=== PATIENT | male | born 1980 | race Two or more races ===

== ENCOUNTER 2017-05-09 23:30 | Emergency (ER) | payer MEDICAID ==
[~2017-05-09] VITALS: Ht 167.6 cm; Wt 86.2 kg
[2017-05-10 00:34] LABS: Basophils # (auto) 0.1 uL; Basophils % (auto) 0.5 % (0.0-2.0); Eosinophils # (auto) 0.2 uL; Eosinophils % (auto) 2.4 % (0.0-7.0); Hematocrit 46.8 % (41.0-53.0); Hemoglobin 16.1 g/dL (13.5-17.5); Lymphocytes % (auto) 30.1 % (10.0-50.0); Mean Corpuscular Hgb Conc. 34.4 g/dL (32.0-36.0); Mean Corpuscular Volume 87.2 fL (80.0-100.0); Monocytes # (auto) 0.6 uL; Monocytes % (auto) 6.5 % (0.0-12.0); Neutrophils % (auto) 60.5 % (37.0-80.0); Nucleated Red Blood Cells % 0.1 %; Platelet Count (auto) 129 10^3/uL (140-450); Red Blood Cells 5.36 10^6/uL (4.5-5.90); Red Cell Distribution Width 12.8 % (11.8-14.3); White Blood Cell 9.9 10^3/uL (4.4-10.8)
[2017-05-10 00:38] LABS: Partial Thromboplastin Time 26.8 sec (22.64-33.71); Prothrombin Time 10.9 sec (9.37-12.3)
[2017-05-10 00:42] LABS: Alanine Aminotransferase 43 U/L (16-61); Albumin 3.8 g/dL (3.4-5.0); Anion Gap 6 (5-15); Aspartate Aminotransferase 51 U/L (15-37); BUN/Creatinine Ratio 10.8; Blood Urea Nitrogen 8 mg/dL (7-18); Calcium 8.9 mg/dL (8.5-10.1); Carbon Dioxide 25 mmol/L (21-32); Chloride 111 mmol/L (98-107); GFR African American 152 mL/min; GFR Non-African American 126 mL/min; Glucose 120 mg/dL (74-106); Potassium 3.5 mmol/L (3.5-5.1); Sodium 142 mmol/L (136-145)
[2017-05-10 00:47] LABS: Alkaline Phosphatase 92 U/L (45-117); Bilirubin, Total 0.4 mg/dL (0.2-1.0); Total Protein 7.3 g/dL (6.4-8.2)
[2017-05-10 09:46] VITALS: BP 148/94
== END 2017-05-10 10:17 | disposition home or self-care (01) ==
LOC: ER 23:32
DX: R07.89 Other chest pain (principal); D69.6 Thrombocytopenia, unspecified; I10 Essential (primary) hypertension; R73.9 Hyperglycemia, unspecified
CPT/HCPCS: 36415; 71045; 80053; 84443; 84484; 85025; 85610; 85730; 93005

== ENCOUNTER 2017-08-01 20:55 | Emergency (ER) | payer MEDICAID ==
[~2017-08-01] VITALS: Ht 165.1 cm; Wt 86.2 kg
[2017-08-01 21:57] LABS: Basophils # (auto) 0 uL; Basophils % (auto) 0.4 % (0.0-2.0); Eosinophils # (auto) 0.2 uL; Eosinophils % (auto) 2.5 % (0.0-7.0); Hematocrit 45.1 % (41.0-53.0); Lymphocytes # (auto) 2.6 uL; Lymphocytes % (auto) 26.7 % (10.0-50.0); Mean Corpuscular Hemoglobin 30.3 pg (28.0-32.0); Mean Corpuscular Hgb Conc. 35.7 g/dL (32.0-36.0); Mean Corpuscular Volume 84.9 fL (80.0-100.0); Monocytes # (auto) 0.7 uL; Monocytes % (auto) 7.1 % (0.0-12.0); Neutrophils # (auto) 6.2 uL; Neutrophils % (auto) 63.3 % (37.0-80.0); Nucleated Red Blood Cells % 0.2 %; Platelet Count (auto) 128 10^3/uL (140-450); Red Blood Cells 5.31 10^6/uL (4.5-5.90); Red Cell Distribution Width 12.5 % (11.8-14.3); White Blood Cell 9.8 10^3/uL (4.4-10.8)
[2017-08-01 22:03] LABS: Alanine Aminotransferase 41 U/L (16-61); Alkaline Phosphatase 84 U/L (45-117); Anion Gap 8 (5-15); Aspartate Aminotransferase 30 U/L (15-37); BUN/Creatinine Ratio 9.4; Bilirubin, Total 0.6 mg/dL (0.2-1.0); Blood Urea Nitrogen 9 mg/dL (7-18); Calcium 8.5 mg/dL (8.5-10.1); Carbon Dioxide 27 mmol/L (21-32); Chloride 106 mmol/L (98-107); GFR African American 113 mL/min; GFR Non-African American 93 mL/min; Glucose 106 mg/dL (74-106); Magnesium 2.3 mg/dL (1.6-2.6); Potassium 3.7 mmol/L (3.5-5.1); Sodium 141 mmol/L (136-145); Total Protein 7.8 g/dL (6.4-8.2)
[2017-08-02 04:00] VITALS: BP 135/80
== END 2017-08-02 04:35 | disposition home or self-care (01) ==
LOC: ER 20:55
DX: R07.89 Other chest pain (principal); I10 Essential (primary) hypertension; R06.02 Shortness of breath
CPT/HCPCS: 36415; 71045; 80053; 83735; 83880; 84484; 85025; 85379; 93005

== ENCOUNTER 2017-10-06 21:40 | Emergency (ER) | payer MEDICAID ==
[~2017-10-06] VITALS: Ht 162.6 cm; Wt 88.5 kg
[2017-10-06 22:07] VITALS: BP 102/84
[2017-10-07] MEDS ORDERED: TETRACAINE HCL 0.5% OPTH(EYE) SOLN 4ML EACHEYE ONE (00:30)
[2017-10-07] MEDS ORDERED: FLUORESCEIN SOD 1 MG TEST STRIP ONE (00:40)
[2017-10-07] MEDS ORDERED: FLUORESCEIN SOD 1 MG TEST STRIP LEFTEYE ONE (01:00)
[2017-10-07] MEDS ORDERED: GENTAMICIN OPTH sol 0.3% 5ml EACHEYE ONE (01:00)
== END 2017-10-07 00:54 | disposition home or self-care (01) ==
LOC: ER 21:40
DX: H16.002 Unspecified corneal ulcer, left eye (principal); I10 Essential (primary) hypertension

== ENCOUNTER 2018-06-18 13:02 | Emergency (ER) | payer MEDICAID ==
[~2018-06-18] VITALS: Ht 165.1 cm; Wt 86.2 kg
[2018-06-18 14:33] LABS: Basophils # (auto) 0 uL; Basophils % (auto) 0.4 % (0.0-2.0); Eosinophils # (auto) 0.2 uL; Eosinophils % (auto) 1.4 % (0.0-7.0); Hemoglobin 18.2 g/dL (13.5-17.5); Lymphocytes # (auto) 2.3 uL; Lymphocytes % (auto) 20.9 % (10.0-50.0); Mean Corpuscular Hemoglobin 29.4 pg (28.0-32.0); Mean Corpuscular Volume 83.9 fL (80.0-100.0); Monocytes # (auto) 0.7 uL; Monocytes % (auto) 6.7 % (0.0-12.0); Neutrophils # (auto) 7.9 uL; Neutrophils % (auto) 70.6 % (37.0-80.0); Nucleated Red Blood Cells % 0.3 %; Platelet Count (auto) 116 10^3/uL (140-450); Red Cell Distribution Width 13.7 % (11.8-14.3); White Blood Cell 11.2 10^3/uL (4.4-10.8)
[2018-06-18 14:36] LABS: Albumin 4.2 g/dL (3.4-5.0); Anion Gap 8 (5-15); Blood Urea Nitrogen 13 mg/dL (7-18); Carbon Dioxide 24 mmol/L (21-32); Chloride 100 mmol/L (98-107); Glucose 322 mg/dL (74-106); Potassium 3.9 mmol/L (3.5-5.1); Sodium 132 mmol/L (136-145)
[2018-06-18 14:38] LABS: Alanine Aminotransferase 58 U/L (16-61); Aspartate Aminotransferase 35 U/L (15-37); GFR African American 116 mL/min; GFR Non-African American 96 mL/min
[2018-06-18 14:48] LABS: Alkaline Phosphatase 150 U/L (45-117); Bilirubin, Total 0.6 mg/dL (0.2-1.0); Total Protein 8.3 g/dL (6.4-8.2)
[2018-06-18] MEDS ORDERED: SODIUM CHLORIDE 0.9% 1,000 ML IV ONE (15:33)
[2018-06-18] MEDS ORDERED: InsuLIN REG 1unit/0.01ml Soln (100units/ml) IV ONE (15:45)
[2018-06-18 15:46] VITALS: BP 145/100
== END 2018-06-18 17:28 | disposition home or self-care (01) ==
LOC: ER 13:08
DX: R73.9 Hyperglycemia, unspecified (principal); R07.89 Other chest pain
CPT/HCPCS: 36415; 71046; 80053; 82010; 82962; 83036; 84484; 85025; 93005; 94761; 96374; 99284; J1815; J7030

== ENCOUNTER 2018-08-10 17:24 | Emergency (ER) | payer MEDICAID, OTHER ==
[~2018-08-10] VITALS: Ht 167.6 cm; Wt 81.6 kg
[2018-08-10] MEDS ORDERED: cefTRIAXone SOD 1,000 MG VL IM ONE (18:45)
[2018-08-10] MEDS ORDERED: TETANUS-DIPTH-ACEL PERTUSSIS 0.5ML SYRG IM ONE (18:45)
[2018-08-10 18:53] VITALS: BP 124/77
== END 2018-08-10 19:12 | disposition home or self-care (01) ==
LOC: ER 17:36
DX: S61.213A Laceration without foreign body of left middle finger without damage to nail, initial encounter (principal); W26.8XXA Contact with other sharp object(s), not elsewhere classified, initial encounter; Y93.89 Activity, other specified; Y99.8 Other external cause status; Y92.096 Garden or yard of other non-institutional residence as the place of occurrence of the external cause
CPT/HCPCS: 12001; 90471; 90715; 96372; 99283; J0696

== ENCOUNTER 2020-04-21 05:44 | Emergency (ER) | payer MEDICAID ==
[~2020-04-21] VITALS: Ht 167.6 cm; Wt 81.6 kg
[2020-04-21 06:36] LABS: Albumin 3.6 g/dL (3.4-5.0); Anion Gap 10 (5-15); Blood Urea Nitrogen 6 mg/dL (7-18); Calcium 8.9 mg/dL (8.5-10.1); Carbon Dioxide 23 mmol/L (21-32); Chloride 99 mmol/L (98-107); Glucose 345 mg/dL (74-106); Potassium 3.7 mmol/L (3.5-5.1); Sodium 132 mmol/L (136-145)
[2020-04-21 06:45] LABS: Alanine Aminotransferase 45 U/L (16-61); Alkaline Phosphatase 104 U/L (45-117); Aspartate Aminotransferase 22 U/L (15-37); BUN/Creatinine Ratio 9.2; Bilirubin, Total 0.7 mg/dL (0.2-1.0); GFR African American 174 mL/min; GFR Non-African American 144 mL/min; Total Protein 7.3 g/dL (6.4-8.2)
[2020-04-21 06:52] LABS: Basophils # (auto) 0 10 ^3/uL (0-0.2); Eosinophils # (auto) 0.2 10 ^3/uL (0-0.8); Lymphocytes # (auto) 1.3 10 ^3/uL (0.4-5.4); Monocytes # (auto) 0.7 10 ^3/uL (0-1.3); Neutrophils % (auto) 76.6 % (37.0-80.0); Nucleated Red Blood Cells % 0.1 %; Platelet Count (auto) 144 10^3/uL (140-450); Red Cell Distribution Width 12.7 % (11.8-14.3)
[2020-04-21 06:55] LABS: Basophils % (auto) 0.4 % (0.0-2.0); Eosinophils % (auto) 2.1 % (0.0-7.0); Hemoglobin 17.5 g/dL (13.5-17.5); Lymphocytes % (auto) 13.8 % (10.0-50.0); Mean Corpuscular Hemoglobin 31.5 pg (28.0-32.0); Mean Corpuscular Hgb Conc. 35.7 g/dL (32.0-36.0); Mean Corpuscular Volume 88.1 fL (80.0-100.0); Monocytes % (auto) 7.1 % (0.0-12.0); Neutrophils # (auto) 7.4 10 ^3/uL (1.6-8.6); Red Blood Cells 5.56 10^6/uL (4.5-5.90); White Blood Cell 9.7 10^3/uL (4.4-10.8)
[2020-04-21] MEDS ORDERED: cloNIDine HCL 0.1 MG TAB PO ONE (07:00)
[2020-04-21] MEDS ORDERED: LORazepam 2MG/ML-1ML VIAL IV ONE (07:00)
[2020-04-21] MEDS ORDERED: ASPirin 81 mg TAB PO ONE (07:00)
[2020-04-21 09:15] VITALS: BP 133/93
== END 2020-04-21 09:36 | disposition home or self-care (01) ==
LOC: ER 05:44
DX: I10 Essential (primary) hypertension (principal); R07.89 Other chest pain
CPT/HCPCS: 36415; 71045; 80053; 83880; 84484; 85025; 93005; 96374; 99285; J2060

== ENCOUNTER 2020-07-02 16:27 | Emergency (ER) | payer SELFPAY ==
[~2020-07-02] VITALS: Ht 167.6 cm; Wt 86.2 kg
[2020-07-02 17:08] VITALS: BP 137/80
== END 2020-07-02 18:02 | disposition home or self-care (01) ==
LOC: ER 16:27
DX: R51.9 Headache, unspecified (principal); E11.9 Type 2 diabetes mellitus without complications; I10 Essential (primary) hypertension
CPT/HCPCS: 70450

== ENCOUNTER 2021-02-13 20:09 | Emergency (ER) | payer SELFPAY ==
[~2021-02-13] VITALS: Ht 167.6 cm; Wt 86.2 kg
[2021-02-13 20:19] VITALS: BP 198/117
== END 2021-02-14 00:45 | disposition left against medical advice (07) ==
LOC: ER 20:11
DX: I10 Essential (primary) hypertension (principal); Z53.21 Procedure and treatment not carried out due to patient leaving prior to being seen by health care provider
CPT/HCPCS: 71045; 93005

== ENCOUNTER 2021-07-27 15:56 | Emergency (ER) | payer MEDICAID ==
[~2021-07-27] VITALS: Ht 167.6 cm; Wt 86.2 kg
[2021-07-27] MEDS ORDERED: ASPirin 81 mg TAB PO ONE (17:00)
[2021-07-27] MEDS ORDERED: LORazepam 2MG/ML-1ML VIAL IV ONE (17:00)
[2021-07-27] MEDS ORDERED: SODIUM CHLORIDE 0.9% 1,000 ML IVB ONE (17:00)
[2021-07-27 17:57] LABS: Basophils # (auto) 0.2 10 ^3/uL (0-0.2); Basophils % (auto) 2.5 % (0.0-2.0); Eosinophils # (auto) 0.2 10 ^3/uL (0-0.8); Hematocrit 43.9 % (41.0-53.0); Hemoglobin 15.3 g/dL (13.5-17.5); Lymphocytes # (auto) 1.3 10 ^3/uL (0.4-5.4); Lymphocytes % (auto) 14.8 % (10.0-50.0); Mean Corpuscular Hemoglobin 28.2 pg (28.0-32.0); Mean Corpuscular Hgb Conc. 34.9 g/dL (32.0-36.0); Mean Corpuscular Volume 80.7 fL (80.0-100.0); Monocytes # (auto) 0.5 10 ^3/uL (0-1.3); Monocytes % (auto) 5.2 % (0.0-12.0); Neutrophils # (auto) 6.8 10 ^3/uL (1.6-8.6); Neutrophils % (auto) 75.5 % (37.0-80.0); Nucleated Red Blood Cells % 0.1 %; Red Blood Cells 5.44 10^6/uL (4.5-5.90); Red Cell Distribution Width 14.1 % (11.8-14.3); White Blood Cell 8.9 10^3/uL (4.4-10.8)
[2021-07-27 18:16] LABS: Albumin 4.1 g/dL (3.4-5.0); BUN/Creatinine Ratio 9.8; Calcium 9.2 mg/dL (8.5-10.1)
[2021-07-27 18:30] LABS: Bilirubin, Total 0.5 mg/dL (0.2-1.0); Total Protein 7.7 g/dL (6.4-8.2)
[2021-07-28 00:13] VITALS: BP 146/86
== END 2021-07-28 00:16 | disposition home or self-care (01) ==
LOC: ER 15:56
DX: I10 Essential (primary) hypertension (principal); R07.89 Other chest pain; F41.9 Anxiety disorder, unspecified; E86.0 Dehydration; E11.9 Type 2 diabetes mellitus without complications; F17.210 Nicotine dependence, cigarettes, uncomplicated
CPT/HCPCS: 36415; 70450; 71045; 80053; 84443; 84484; 85025; 93005

== ENCOUNTER 2022-03-15 19:10 | Emergency (ER) | payer MEDICAID ==
[~2022-03-15] VITALS: Ht 165.1 cm; Wt 89.5 kg
[2022-03-15 21:26] LABS: Basophils # (auto) 0 10 ^3/uL (0-0.2); Basophils % (auto) 0.5 % (0.0-2.0); Eosinophils # (auto) 0.2 10 ^3/uL (0-0.8); Eosinophils % (auto) 2.6 % (0.0-7.0); Hemoglobin 15.6 g/dL (13.5-17.5); Lymphocytes % (auto) 24.8 % (10.0-50.0); Mean Corpuscular Hemoglobin 28.3 pg (28.0-32.0); Mean Corpuscular Hgb Conc. 34.7 g/dL (32.0-36.0); Mean Corpuscular Volume 81.5 fL (80.0-100.0); Monocytes # (auto) 0.7 10 ^3/uL (0-1.3); Neutrophils # (auto) 5.2 10 ^3/uL (1.6-8.6); Neutrophils % (auto) 64.1 % (37.0-80.0); Nucleated Red Blood Cells % 1.7 %; Red Blood Cells 5.52 10^6/uL (4.5-5.90); Red Cell Distribution Width 14.1 % (11.8-14.3); White Blood Cell 8.2 10^3/uL (4.4-10.8)
[2022-03-15 21:45] LABS: Albumin 3.9 g/dL (3.4-5.0); BUN/Creatinine Ratio 12.3; Calcium 9.4 mg/dL (8.5-10.1); Potassium 3.8 mmol/L (3.5-5.1)
[2022-03-15 21:48] LABS: Bilirubin, Total 0.4 mg/dL (0.2-1.0); Total Protein 7.8 g/dL (6.4-8.2)
[2022-03-16 05:10] VITALS: BP 167/101
== END 2022-03-16 05:11 | disposition home or self-care (01) ==
LOC: ER 19:14
DX: I10 Essential (primary) hypertension (principal); R51.9 Headache, unspecified; F17.210 Nicotine dependence, cigarettes, uncomplicated; E11.9 Type 2 diabetes mellitus without complications; R42 Dizziness and giddiness
CPT/HCPCS: 36415; 70450; 71045; 80053; 84484; 85025; 93005

== ENCOUNTER 2023-06-05 09:37 | Emergency (ER) | payer MEDICAID ==
[~2023-06-05] VITALS: Ht 167.6 cm; Wt 1.7 kg
[2023-06-05] MEDS ORDERED: ACET500T58 PO (12:31)
[2023-06-05 12:38] VITALS: BP 135/70; PULSE 66; RESP 18; TEMP 98.6; O2SAT 98
== END 2023-06-05 12:46 | disposition home or self-care (01) ==
LOC: ER 09:37
DX: R09.A2 Foreign body sensation, throat (principal); M54.2 Cervicalgia; E11.9 Type 2 diabetes mellitus without complications; I10 Essential (primary) hypertension; F17.210 Nicotine dependence, cigarettes, uncomplicated
CPT/HCPCS: 70360

== ENCOUNTER 2023-10-17 15:05 | Emergency (ER) | payer MEDICAID ==
[~2023-10-17] VITALS: Ht 165.1 cm; Wt 85.0 kg
[~2023-10-17 15:05] MED LIST: ACET500T58 PO
[2023-10-17 15:54] LABS: Basophils # (auto) 0 10 ^3/uL (0-0.2); Basophils % (auto) 0.4 % (0.0-2.0); Eosinophils # (auto) 0.2 10 ^3/uL (0-0.8); Eosinophils % (auto) 2.7 % (0.0-7.0); Hematocrit 45.1 % (41.0-53.0); Hemoglobin 16.2 g/dL (13.5-17.5); Lymphocytes # (auto) 1.7 10 ^3/uL (0.4-5.4); Lymphocytes % (auto) 22.4 % (10.0-50.0); Mean Corpuscular Hemoglobin 30.2 pg (28.0-32.0); Mean Corpuscular Hgb Conc. 35.9 g/dL (32.0-36.0); Mean Corpuscular Volume 84.1 fL (80.0-100.0); Monocytes # (auto) 0.5 10 ^3/uL (0-1.3); Monocytes % (auto) 7.3 % (0.0-12.0); Neutrophils % (auto) 67.2 % (37.0-80.0); Nucleated Red Blood Cells % 0.1 %; Platelet Count (auto) 154 10^3/uL (140-450); Red Blood Cells 5.36 10^6/uL (4.5-5.90); Red Cell Distribution Width 13.1 % (11.8-14.3); White Blood Cell 7.4 10^3/uL (4.4-10.8)
[2023-10-17 16:14] LABS: Alanine Aminotransferase 46 U/L (7-40); Albumin 4.8 g/dL (3.2-4.8); Alkaline Phosphatase 146 U/L (46-116); Anion Gap 11 (5-15); Aspartate Aminotransferase 31 U/L (13-40); BUN/Creatinine Ratio 8.6 (10.0-20.0); Blood Urea Nitrogen 10 mg/dL (9-23); Calcium 9.5 mg/dL (8.7-10.4); Carbon Dioxide 21 mmol/L (20-30); Chloride 106 mmol/L (98-107); Glucose 208 mg/dL (74-106); Potassium 3.5 mmol/L (3.5-5.1); Sodium 138 mmol/L (136-145)
[2023-10-17 16:15] LABS: Bilirubin, Total 0.8 mg/dL (0.2-1.0); Total Protein 7.5 g/dL (5.7-8.2)
[2023-10-17] MEDS ORDERED: AZITTAB PO (18:56)
[2023-10-17] MEDS ORDERED: ALBU108A5 IN (18:56)
[2023-10-17] MEDS ORDERED: MONT10TA23 PO (18:56)
[2023-10-17 21:25] VITALS: BP 143/81; PULSE 62; RESP 12; TEMP 98; O2SAT 94
== END 2023-10-17 21:30 | disposition home or self-care (01) ==
LOC: ER 15:05
DX: J06.9 Acute upper respiratory infection, unspecified (principal); M54.9 Dorsalgia, unspecified; I10 Essential (primary) hypertension; E11.9 Type 2 diabetes mellitus without complications; F17.210 Nicotine dependence, cigarettes, uncomplicated
CPT/HCPCS: 36415; 71045; 80053; 84484; 85025; 93005

== ENCOUNTER 2023-12-15 18:26 | Emergency (ER) | payer MEDICAID ==
[~2023-12-15] VITALS: Ht 167.6 cm; Wt 82.5 kg
[~2023-12-15 18:26] MED LIST changes: +ALBU108A5 IN; +AZITTAB PO; +MONT10TA23 PO
[2023-12-15 19:26] LABS: Urine Bacteria None Seen /hpf (None Seen)
[2023-12-15 19:38] LABS: Basophils # (auto) 0 10 ^3/uL (0-0.2); Basophils % (auto) 0.4 % (0.0-2.0); Eosinophils # (auto) 0.3 10 ^3/uL (0-0.8); Eosinophils % (auto) 3.4 % (0.0-7.0); Hematocrit 47.8 % (41.0-53.0); Hemoglobin 17.2 g/dL (13.5-17.5); Lymphocytes # (auto) 1.4 10 ^3/uL (0.4-5.4); Mean Corpuscular Hemoglobin 30.9 pg (28.0-32.0); Mean Corpuscular Volume 85.7 fL (80.0-100.0); Monocytes # (auto) 0.6 10 ^3/uL (0-1.3); Monocytes % (auto) 7.7 % (0.0-12.0); Neutrophils # (auto) 5.4 10 ^3/uL (1.6-8.6); Neutrophils % (auto) 70.5 % (37.0-80.0); Nucleated Red Blood Cells % 0.4 %; Platelet Count (auto) 136 10^3/uL (140-450); Red Blood Cells 5.57 10^6/uL (4.5-5.90); Red Cell Distribution Width 13.5 % (11.8-14.3); White Blood Cell 7.7 10^3/uL (4.4-10.8)
[2023-12-15 19:43] LABS: Urine Blood Negative /uL (Negative); Urine Clarity Clear (Clear); Urine Color Colorless (Yellow); Urine Protein, UAD Negative (Negative); Urine Specific Gravity 1.002 (1.001-1.035); Urine Urobilinogen Normal (Negative); Urine WBC <1 /hpf (0 - 3); Urine pH 5.5 (5.0-9.0)
[2023-12-15 19:45] LABS: Chloride 105 mmol/L (98-107); Potassium 3.7 mmol/L (3.5-5.1); Sodium 136 mmol/L (136-145)
[2023-12-15 19:46] LABS: Anion Gap 4 (5-15); Carbon Dioxide 27 mmol/L (20-31)
[2023-12-15 19:47] LABS: Calcium 9.6 mg/dL (8.7-10.4)
[2023-12-15 19:51] LABS: BUN/Creatinine Ratio 11.8 (10.0-20.0); Blood Urea Nitrogen 14 mg/dL (9-23); Glucose 204 mg/dL (74-106)
[2023-12-15 20:38] VITALS: BP 171/102; PULSE 74; RESP 18; TEMP 98.6; O2SAT 98
[2023-12-15] MEDS: cloNIDine HCL 0.1 MG TAB PO ONE (20:44)
[2023-12-15] MEDS: SODIUM CHLORIDE 0.9% 1,000 ML IV ONE (21:00)
[2023-12-15] MEDS: KETOROLAC TROMETH 30 MG/ML 1ML VIAL IV ONE (21:00)
== END 2023-12-15 21:50 | disposition home or self-care (01) ==
LOC: ER 18:26
DX: E11.65 Type 2 diabetes mellitus with hyperglycemia (principal); I16.0 Hypertensive urgency; I10 Essential (primary) hypertension; F17.210 Nicotine dependence, cigarettes, uncomplicated; Z79.899 Other long term (current) drug therapy; Z90.49 Acquired absence of other specified parts of digestive tract
CPT/HCPCS: 36415; 80048; 81001; 82962; 85025; 96361; 96374; 99283; J1885; J7030

== ENCOUNTER 2024-09-23 12:47 | Inpatient (IN) | payer MEDICAID ==
[~2024-09-23] VITALS: Ht 165.1 cm; Wt 86.3 kg
--- NOTE | 2024-09-23 13:11 | ED.PDOC ---
SOB-HPI HPI Comments 43 y/o M, with PMHx of DM, HLD, and HTN presents to the ED for CC of shortness of breath. Patient states, he has been experiencing worsening symptoms of shortness of breath [id number]. Patient reports new onset symptoms of chest discomfort, weakness, increased thirst, faintness and headache since this morning (09/23/24). Patient describes chest discomfort to be pressure like in nature. Patient denies dysuria, nausea, vomiting, or fever. No other symptoms or modifying factors present at this time. Chief Complaint: General Weakness Time Seen by MD: 13:00 Primary Care Provider: VINAY Reviewed notes: Nurses Notes, Medications, Allergies Information Source: Patient Mode of Arrival: Ambulatory Severity: Moderate Timing: Hours Duration: Since onset Context: At Rest PE Risk Factors: None History of: None Prehospital treatment: None Modifying Factors: Nothing Associated Signs and Symptoms: None Past Medical History PAST MEDICAL HISTORY: DM, High Lipids, HTN Surgical History: Cholecystectomy Family History Family History: Family hx of DM Social History Smoker: Cigarettes Alcohol: Occasionally Drugs: Denies Drug Use Lives In: Home Constitutional: reports: fatigue, weakness; denies: chills, diaphoresis, fever, malaise, sweats, others EENTM: denies: blurred vision, double vision, ear bleeding, ear discharge, ear drainage, ear pain, ear ringing, eye pain, eye redness, hearing loss, mouth pain, mouth swelling, nasal discharge, nose bleeding, nose congestion, nose pain, photophobia, tearing, throat pain, throat swelling, voice changes, others Respiratory: reports: shortness of breath; denies: cough, hemoptysis, orthopnea, SOB at rest, SOB with excertion, stridor, wheezing, others Cardiovascular: reports: chest pain; denies: dizzy spells, diaphoresis, Dyspnea on exertion, edema, irregular heart beat, left arm pain, lightheadedness, palpitations, PND, syncope, others Gastrointestinal: denies: abdomen distended, abdominal pain, blood streaked bowels, constipated, diarrhea, dysphagia, difficulty swallowing, hematemesis, melena, nausea, poor appetite, poor fluid intake, rectal bleeding, rectal pain, vomiting, others Genitourinary: denies: burning, dysuria, flank pain, frequency, hematuria, incontinence, penile discharge, penile sore, pain, testicle pain, testicle swelling, urgency, others Neurological: reports: dizziness, headache; denies: fainting, left sided numbness, left sided weakness, numbness, paresthesia, pre-existing deficit, right sided numbness, right sided weakness, seizure, speech problems, tingling, tremors, weakness, others Musculoskeletal: denies: back pain, gout, joint pain, joint swelling, muscle pain, muscle stiffness, neck pain, others Integumetry: denies: bruises, change in color, change in hair/nails, dryness, laceration, lesions, lumps, rash, wounds, others Allergic/Immunocompromised: denies: Difficulty Healing, Frequent Infections, Hives, Itching, others Hematologic/Lymphatic: denies: anemia, blood clots, easy bleeding, easy bruising, swollen glands, others Endocrine: reports: excessive thirst; denies: excessive hunger, excessive sweating, excessive urination, flushing, intolerance to cold, intolerance to heat, unexplained weight gain, unexplained weight loss, others Psychiatric: denies: anxiety, bipolar disorder, depression, hopeless, panic disorder, schizophrenia, sleepless, suicidal, others All Other Systems: Reviewed and Negative Physical Exam General Appearance: No Apparent Distress, Normal HEENT: Normal ENT Inspection, Pharynx Normal, TMs Normal Neck: Full Range of Motion, Non-Tender, Normal, Normal Inspection Respiratory: Chest Non-Tender, Lungs Clear, No Accessory Muscle Use, No Respiratory Distress, Normal Breath Sounds Cardiovascular: No Edema, No JVD, No Murmur, No Gallop, Normal Peripheral Pulses, Regular Rate/Rhythm Breast Exam: Deferred Gastrointestinal: No Organomegaly, Non Tender, No Pulsatile Mass, Normal Bowel Sounds, Soft Genitalia: Deferred Pelvic: Deferred Rectal: Deferred Extremities: No calf tenderness, Normal capillary refill, Normal inspection, Normal range of motion, Non-tender, No pedal edema Musculoskeletal : Apperance: Normal Neurologic: Alert, 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 Was a procedure done?: No Differential Dx Differential Diagnosis: Pulmonary Embolism, Sinusitis, Pharyngitis, URI X-Ray, Labs, Meds, VS Vital Signs Date Time Temp Pulse Resp B/P (MAP) Pulse Ox O2 Delivery O2 Flow Rate FiO2 09/23/24 17:39 97.6 76 16 101/79 (86) 98 97.6 09/23/24 12:55 80 09/23/24 12:47 97.7 85 22 169/87 99 97.7 Lab Test 09/23/24 16:54 09/23/24 14:51 Range/Units Troponin I High Sensitivity < 3 L < 3 L </=54 ng/L White Blood Count 7.3 4.4-10.8 10^3/uL Red Blood Count 5.74 4.5-5.90 10^6/uL Hemoglobin 16.5 13.5-17.5 g/dL Hematocrit 46.5 41.0-53.0 % Mean Corpuscular Volume 80.9 80.0-100.0 fL Mean Corpuscular Hemoglobin 28.8 28.0-32.0 pg Mean Corpuscular Hemoglobin Concent 35.6 32.0-36.0 g/dL Red Cell Distribution Width 13.4 11.8-14.3 % Platelet Count 144 140-450 10^3/uL Mean Platelet Volume 8.9 6.9-10.8 fL Neutrophils (%) (Auto) 67.7 37.0-80.0 % Lymphocytes (%) (Auto) 21.2 10.0-50.0 % Monocytes (%) (Auto) 9.0 0.0-12.0 % Eosinophils (%) (Auto) 1.7 0.0-7.0 % Basophils (%) (Auto) 0.4 0.0-2.0 % Neutrophils # (Auto) 5.0 1.6-8.6 10 ^3/uL Lymphocytes # (Auto) 1.5 0.4-5.4 10 ^3/uL Monocytes # (Auto) 0.7 0-1.3 10 ^3/uL Eosinophils # (Auto) 0.1 0-0.8 10 ^3/uL Basophils # (Auto) 0 0-0.2 10 ^3/uL Nucleated Red Blood Cells 0.3 % Sodium Level 138 136-145 mmol/L Potassium Level 3.9 3.5-5.1 mmol/L Chloride Level 102 98-107 mmol/L Carbon Dioxide Level 27 20-31 mmol/L Anion Gap 9 5-15 Blood Urea Nitrogen 11 9-23 mg/dL Creatinine 1.16 0.700-1.30 mg/dL Glomerular Filtration Rate Calc 79 >90 mL/min BUN/Creatinine Ratio 9.5 L 10.0-20.0 Serum Glucose 185 H 74-106 mg/dL Calcium Level 9.4 8.7-10.4 mg/dL [place] [address] Ph: [phone] DIAGNOSTIC IMAGING Diagnostic Imaging Report : [id number] Signed PATIENT: SAUL HARP ACCT: [id number] UNIT: [id number] : 1980 LOC: ER ROOM / BED: / AGE / SEX: 43 / M ADM STATUS: REG ER SERVICE 1418 ORDERING PHYSICIAN: ZAC LOCKETT MD PROCEDURE(s): CXRP - CHEST PORTABLE REASON: weakness near syncope ORDER NUMBER(s): [id number], ACCESSION NUMBER(s): [id number] INDICATION: weakness near syncope TECHNIQUE: Frontal view of the chest. COMPARISON: XY CHEST PORTABLE on DOS: 10/17/23, CHEST PORTABLE on DOS: 03/15/22, CXRP on DOS: 03/15/22, CHEST PORTABLE on DOS: 07/27/21, CXRP on DOS: 07/27/21 FINDINGS: . The heart and mediastinal contours are grossly unremarkable. There is no evidence of pleural disease. The lungs are clear. The bony structures of the chest are intact without fracture. IMPRESSION: 1. No evidence of acute disease. ATED BY: JIM SNOW MD DICTATED DATE/TIME: 09/23/241443 SIGNED BY: JIM SNOW MD SIGNED DATE/TIME: 09/23/241443 CC: [address] [address] Ph: [phone] DIAGNOSTIC IMAGING Diagnostic Imaging Report : [id number] Signed PATIENT: SAUL HARP ACCT: [id number] UNIT: [id number] : 1980 LOC: ER ROOM / BED: / AGE / SEX: 43 / M ADM STATUS: REG ER SERVICE 1418 ORDERING PHYSICIAN: ZAC LOCKETT MD PROCEDURE(s): HWOCT - HEAD WITHOUT CONTRAST REASON: near syncope ORDER NUMBER(s): [id number], ACCESSION NUMBER(s): [id number] EXAM: CT HEAD WITHOUT CONTRAST HISTORY: near syncope COMPARISON: XY NECK FOR SOFT TISSUE on DOS: 06/05/23, HEAD WITHOUT CONTRAST on DOS: 03/15/22, HEAD WITHOUT CONTRAST on DOS: 07/27/21, HEAD WITHOUT CONTRAST on DOS: 07/02/20 TECHNIQUE: Noncontrast axial CT images of the head were performed. Sagittal and coronal reformatted images were obtained. This CT exam was performed using 1 or more of the following dose reduction techniques: Automated exposure control, adjustment of the mA and/or kv according to patient size, or the use of iterative reconstruction techniques. Radiation Dose: CTDI volume is 53.49 mGy. Dose-length product is 912.72 mGy*cm FINDINGS: No intracranial hemorrhage, mass, midline shift, hydrocephalus, or evidence of acute large vessel infarct. There is mildly divergent optic gaze. The partially- visualized paranasal sinuses are clear. The bilateral mastoid air cells and middle ear spaces are clear. No cranial fracture or scalp edema. IMPRESSION: No acute intracranial process. ATED BY: KHADIJAH GONZALEZ MD DICTATED DATE/TIME: 09/23/24 1537 SIGNED BY: KHADIJAH GONZALEZ MD SIGNED DATE/TIME: 09/23/24 1537 CC: Time of 1ST Reevaluation: 13:30 Reevaluation 1ST: Unchanged Patient Education/Counseling: Diagnosis, Treatment Family Education/Counseling: No Family Present SEPSIS Sepsis Screen Date sepsis recognized/suspect: Sep 23, 2024 Time Sepsis recognized/suspect: 1249 Recent Procedure: No On Antibiotic Therapy: No Respiratory Rate >20: No Heart Rate >90: No Temp<36 C (96.8 F) or >38.3 C: No SBP <90 or MAP <65 mmHG: No New Acute Mental Status Change: No Is the patient on CPAP, BIPAP,: No Physician Orders Electrocardigram (09/23/24 13:05) Urinalysis (09/23/24 14:18) Chest Portable (09/23/24 14:18) Head Without Contrast (09/23/24 14:18) Troponin-I Hs (09/23/24 17:18) Vital Signs Date Time Temp Pulse Resp B/P (MAP) Pulse Ox O2 Delivery O2 Flow Rate FiO2 09/23/24 17:39 97.6 76 16 101/79 (86) 98 97.6 09/23/24 12:55 80 09/23/24 12:47 97.7 85 22 169/87 99 97.7 Laboratory Tests Test 09/23/24 14:51 White Blood Count 7.3 10^3/uL (4.4-10.8) Departure 1 Departure Time of Disposition: 17:52 (Patient presented with chest pain, shortness of breath, and weakness that was concerning for possible STEMI, ACS, PE, Pneumonia, Muscle Strain, COPD, Dissection. Data: 1. I ordered and reviewed the result of at least 3 labs including a CBC, BMP, and Troponin. 2. I independently interpreted the following tests: EKG which shows sinus arrythmia and Chest X-ray which shows benign chest.Risk:This patient has a high risk of morbidity due to further diagnostic testing or treatment and may suffer from an acute cardiac or respiratory disorder. Workup reveals concern for acs, and patient should be admitted for further workup and possible expert consultation. ) Impression: Primary Impression: Acute chest pain Additional Impressions: Shortness of breath Syncope Qualified Codes: R55 - Syncope and collapse Disposition: ADMITTED INPATIENT Admit to: Med Surg Condition: Serious Critical Care Note Critical Care Time?: Yes Critical care comment: Acute chest pain Authorized and Performed by: Zac Lockett MD Total critical care time: Approximately 37 minutes Due to a high probability of clinically significant, life threatening deterioration, the patient required my highest level of preparedness to intervene emergently and I personally spent this critical care time directly and personally managing the patient. This critical care time included obtaining a history; examining the patient; pulse oximetry; ordering and review of studies; arranging urgent treatment with development of a management plan; evaluation of patient's response to treatment; frequent reassessment; and, discussions with other providers. This critical care time was performed to assess and manage the high probability of imminent, life-threatening deterioration that could result in multi-organ failure. It was exclusive of separately billable procedures and treating other patients and teaching time. Please see my other sections and the rest of the note for further information on patient assessment and treatment. Stability Stability form required: No Heart Score Heart Score: Heart Score Response (Comments) Value History N/A 0 EKG N/A 0 Age N/A 0 Risk Factors N/A 0 Troponin N/A 0 Total 0 I personally scribed for ZAC LOCKETT MD ([email or web address]) on 09/23/24 at 13:11. Electronically submitted by Wilma English ([email or web address]). I personally scribed for ZAC LOCKETT MD ([email or web address]) on 09/23/24 at 13:41. Electronically submitted by Wilma English ([email or web address]). I personally scribed for ZAC LOCKETT MD ([email or web address]) on 09/23/24 at 15:45. Electronically submitted by Wilma English ([email or web address]). I personally scribed for ZAC LOCKETT MD ([email or web address]) on 09/23/24 at 15:46. Electronically submitted by Wilma English ([email or web address]). ZAC LOCKETT MD Sep 23, 2024 13:11
--- NOTE | 2024-09-23 14:47 | DVH ---
INDICATION: weakness near syncope TECHNIQUE: Frontal view of the chest. COMPARISON: XY CHEST PORTABLE on DOS: 10/17/23, CHEST PORTABLE on DOS: 03/15/22, CXRP on DOS: 03/15/22, C HEST PORTABLE on DOS: 07/27/21, CXRP on DOS: 07/27/21 FINDINGS: . The heart and mediastinal contours are grossly unremarkable. There is no evidence of pleural disea se. The lungs are clear. The bony structures of the chest are intact without fracture. IMPRESSION: 1. No evidence of acute disease.
[2024-09-23 15:19] LABS: Hematocrit 46.5 % (41.0-53.0); Hemoglobin 16.5 g/dL (13.5-17.5); Mean Corpuscular Hemoglobin 28.8 pg (28.0-32.0); Mean Corpuscular Volume 80.9 fL (80.0-100.0); Nucleated Red Blood Cells % 0.3 %
[2024-09-23 15:25] LABS: Chloride 102 mmol/L (98-107); Potassium 3.9 mmol/L (3.5-5.1); Sodium 138 mmol/L (136-145)
[2024-09-23 15:26] LABS: Anion Gap 9 (5-15); Calcium 9.4 mg/dL (8.7-10.4); Carbon Dioxide 27 mmol/L (20-31)
[2024-09-23 15:31] LABS: BUN/Creatinine Ratio 9.5 (10.0-20.0); Blood Urea Nitrogen 11 mg/dL (9-23)
[2024-09-23 15:37] LABS: Glucose 185 mg/dL (74-106)
--- NOTE | 2024-09-23 15:39 | DVH ---
EXAM: CT HEAD WITHOUT CONTRAST HISTORY: near syncope COMPARISON: XY NECK FOR SOFT TISSUE on DOS: 06/05/23, HEAD WITHOUT CONTRAST on DOS: 03/15/22, HEAD WITH OUT CONTRAST on DOS: 07/27/21, HEAD WITHOUT CONTRAST on DOS: 07/02/20 TECHNIQUE: Noncontrast axial CT images of the head were performed. Sagittal and coronal reformatted i mages were obtained. This CT exam was performed using 1 or more of the following dose reduction techn iques: Automated exposure control, adjustment of the mA and/or kv according to patient size, or the u se of iterative reconstruction techniques. Radiation Dose: CTDI volume is 53.49 mGy. Dose-length product is 912.72 mGy*cm FINDINGS: No intracranial hemorrhage, mass, midline shift, hydrocephalus, or evidence of acute large vessel inf arct. There is mildly divergent optic gaze. The partially-visualized paranasal sinuses are clear. The bilateral mastoid air cells and middle ear spaces are clear. No cranial fracture or scalp edema. IMPRESSION: No acute intracranial process.
[2024-09-23 18:44] LABS: Urine Protein, UAD Negative (Negative)
[2024-09-23] MEDS ORDERED: BACLOFEN 10 MG TAB PO PRN (22:00)
[2024-09-23] MEDS ORDERED: ONDANSETRON HCL 4 MG/2 ML VIAL IV PRN (22:00)
[2024-09-23] MEDS ORDERED: DEXTROSE (50%) 50ML SYRG IV PRN (22:00)
--- NOTE | 2024-09-23 22:37 | DVHHPRES ---
History of Present Illness Resident Creating Document: SHAY TORRES RESIDENT History of Present Illness Chago Moran is a 43-year-old male, with past medical history of DM type 2, hyperlipidemia, and hypertension. The patient presented to the ED with chief complaint of 2 weeks of generalized weakness and shortness of breath. Patient states, he has a cold for the past 2 weeks that has not resolved yet. Today, he experienced worsening symptoms of generalized weakness and malaise. 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 The patient denies fever, chills, dysuria, nausea, vomiting, or other symptoms. Initial evaluation in the ED showed Troponins 3, 3, Chest Xray and head CT are unremarkable. The patient will be admitted for further evaluation and management. Cardiovascular: HTN, hyperipidemia Endocrine: Diabetes (Type 2) Past Surgical History: None Family History: None Smoke: No ALCOHOL: none Drugs: None Lives: with Family Review of Systems Constitutional: Yes: Weakness, Malaise; No: Fever, Chills, Sweats, Other Eyes: No: Pain, Vision change, Conjunctivae inflammation, Eyelid inflammation, Other, Redness ENT: No: Ear pain, Ear discharge, Nose pain, Nose discharge, Nose congestion, Mouth pain, Mouth swelling, Throat pain, Throat swelling, Other Respiratory: No: Cough, Dry, Shortness of breath, SOB with excertion, Wheezing, Hemoptysis, Pleuritic Pain, Sputum, Wheezing, Other Cardiovascular: No: Chest Pain, Palpitations, Orthopnea, Paroxysmal Noc. Dyspnea, Edema, Lt Headedness, Other Gastrointestinal: No: Nausea, Vomiting, Abdominal Pain, Diarrhea, Constipation, Melena, Hematochezia, Other Genitourinary: No Dysuria, No Frequency, No Incontinence, No Hematuria, No Retention, No Other Musculoskeletal: No: other, neck pain, shoulder pain, arm pain, back pain, hand pain, leg pain, foot pain Skin: No: Rash, Lesions, Jaundice, Bruising, Other Neurological: No: Weakness, Numbness, Incoordination, Change in speech, Confusion, Seizures, Other Allergies: Coded Allergies: NO KNOWN ALLERGIES (Unverified , 07/03/13) Medications Current Medications Medications Dose Ordered Sig/Dominic Route Start Time Stop Time Status Last Admin Dose Admin Ondansetron HCl 4 mg Q4HP PRN IV 09/23/24 22:00 Baclofen 10 mg BID PRN PO 09/23/24 22:00 Diagnostic Test (Pha) 1 strip Q6HR 09/24/24 00:00 Insulin Human Regular Q6HR SC 09/24/24 00:00 Dextrose 50 ml UD PRN IV 09/23/24 22:00 Pantoprazole Sodium 40 mg DAILY PO 09/24/24 10:00 Exam Vital Signs Vital Signs Date Time Temp Pulse Resp B/P (MAP) Pulse Ox O2 Delivery O2 Flow Rate FiO2 09/23/24 19:54 98.4 64 18 136/88 (104) 98 98.4 General Appearance: Alert, Oriented X3, Cooperative HEENT: Atraumatic, Mucous membr. moist/pink Respiratory: Clear to auscultation, Normal air movement Cardiovascular: Regular rate, Normal S1, Normal S2, No murmurs Abdominal: Normal bowel sounds, Soft, No tenderness, No hepatospenomegaly, No masses Extremities: No clubbing, No cyanosis, No edema, Normal pulses, No tenderness/swelling Skin: No rashes, No breakdown, No significant lesion Neuro: Normal gait, Normal speech, Strength at 5/5 X4 ext, Normal tone, Sensation intact Psych/Mental Status: Mental status NL, Mood NL Labs/Xrays Labs Test 09/23/24 18:36 09/23/24 16:54 09/23/24 14:51 Range/Units Urine Color Colorless Yellow Urine Clarity Clear Clear Urine pH 5.5 5.0-9.0 Urine Specific Burke 1.002 1.001-1.035 Urine Protein Negative Negative Urine Ketones Negative Negative Urine Blood Negative Negative /uL Urine Nitrite Negative Negative Urine Bilirubin Negative Negative Urine Urobilinogen Normal Negative mg/dL Urine Leukocyte Esterase Negative Negative /uL Urine RBC <1 0 - 3 /hpf Urine Microscopic WBC 0-3 /HPF Urine Squamous Epithelial Cells None seen <5 /hpf Urine Bacteria None seen None Seen /hpf Urine Glucose Trace Normal mg/dL Troponin I High Sensitivity < 3 L </=54 ng/L White Blood Count 7.3 4.4-10.8 10^3/uL Red Blood Count 5.74 4.5-5.90 10^6/uL Hemoglobin 16.5 13.5-17.5 g/dL Hematocrit 46.5 41.0-53.0 % Mean Corpuscular Volume 80.9 80.0-100.0 fL Mean Corpuscular Hemoglobin 28.8 28.0-32.0 pg Mean Corpuscular Hemoglobin Concent 35.6 32.0-36.0 g/dL Red Cell Distribution Width 13.4 11.8-14.3 % Platelet Count 144 140-450 10^3/uL Mean Platelet Volume 8.9 6.9-10.8 fL Neutrophils (%) (Auto) 67.7 37.0-80.0 % Lymphocytes (%) (Auto) 21.2 10.0-50.0 % Monocytes (%) (Auto) 9.0 0.0-12.0 % Eosinophils (%) (Auto) 1.7 0.0-7.0 % Basophils (%) (Auto) 0.4 0.0-2.0 % Neutrophils # (Auto) 5.0 1.6-8.6 10 ^3/uL Lymphocytes # (Auto) 1.5 0.4-5.4 10 ^3/uL Monocytes # (Auto) 0.7 0-1.3 10 ^3/uL Eosinophils # (Auto) 0.1 0-0.8 10 ^3/uL Basophils # (Auto) 0 0-0.2 10 ^3/uL Nucleated Red Blood Cells 0.3 % Sodium Level 138 136-145 mmol/L Potassium Level 3.9 3.5-5.1 mmol/L Chloride Level 102 98-107 mmol/L Carbon Dioxide Level 27 20-31 mmol/L Anion Gap 9 5-15 Blood Urea Nitrogen 11 9-23 mg/dL Creatinine 1.16 0.700-1.30 mg/dL Glomerular Filtration Rate Calc 79 >90 mL/min BUN/Creatinine Ratio 9.5 L 10.0-20.0 Serum Glucose 185 H 74-106 mg/dL Calcium Level 9.4 8.7-10.4 mg/dL SEPSIS Sepsis Screen Date sepsis recognized/suspect: Sep 23, 2024 Time Sepsis recognized/suspect: 1249 Recent Procedure: No On Antibiotic Therapy: No Respiratory Rate >20: No Heart Rate >90: No Temp<36 C (96.8 F) or >38.3 C: No SBP <90 or MAP <65 mmHG: No New Acute Mental Status Change: No Is the patient on CPAP, BIPAP,: No Physician Orders Admit (09/23/24:52) Code Status (09/23/24:52) Vital Signs .PER UNIT PROTOCOL (09/23/24:52) Review Orders With Adm.Md (09/23/24:52) Bedrest With Bathroom Privileg (09/23/24:52) Consistent Carb(Ccho)Diabetes (09/24/24 Breakfast) Notify Md Of Changes From Base (09/23/24:52) Advance Directive (09/23/24:52) Urinalysis (09/23/24:52) Patient Condition (09/23/24:52) Allergies (09/23/24:) Ondansetron Hcl (Zofran) (09/23/24 22:00) Drug Screen (09/23/24:) Notify Md Of Changes From Base (09/23/24 21:52) Sodium Chloride 0.9% (09/23/24 22:00) Sodium Chloride 0.9% (09/23/24 22:00) Covid19 Antigen Paula (09/23/24 ) Rapid Influenza A&B (09/23/24:52) Baclofen Tablet (Liorisal Tablet) (09/23/24 22:00) Amlodipine Tablet (Norvasc Tablet) (09/24/24 08:00) Glucose Blood (Accu-Chek Comfort Curve T (09/24/24 00:00) Insulin R (Human) (Insulin R) (09/24/24 00:00) Dextrose 50% Syringe (09/23/24 22:00) Complete Blood Count (09/24/24 04:00) Basic Metabolic Panel (09/24/24 04:00) Pantoprazole Tablet (Protonix Tablet) (09/24/24 10:00) Hemoglobin A1c (09/23/24 22:26) Vital Signs Date Time Temp Pulse Resp B/P (MAP) Pulse Ox O2 Delivery O2 Flow Rate FiO2 09/23/24 19:54 98.4 64 18 136/88 (104) 98 98.4 09/23/24 17:39 97.6 76 16 101/79 (86) 98 97.6 Laboratory Tests Test 09/23/24 14:51 White Blood Count 7.3 10^3/uL (4.4-10.8) Assessment/Plan Assessment/Plan #Heat exhaustion #Dehydration IV fluids: NS CBC CMP UA UDS #Upper respiratory infection likely viral vs bacterial #Rule out pneumonia, gram positive/ gram - Covid 19 and Influeza test. Azitromycin 500 mg Ceftriaxone 1g Blood cultures Sputum cultures #MARK with VMN Creatinin 1.16 IV fluids NS Avoid nephrotoxic drugs Monitor Creatinine and BUN #Essential hypertension Amlodipine 10mg Losartan 25mg #DM type 2 with hyperglycemia Hb A1C Insulin Sliding scale #Hyperlipidemia Lipid panel Atorvastatin 40 mg po #Obesity Style life modification counselling Diabetic diet DVT prophylaxis- ambulating. PUD prophylaxis Protonic. Goals of care discussed with the patient > 35 min. Discussed plan of care with Dr. Guzmán Code status: Full code PCP: Dr. Maria Teresa Davis Plan discussed with: Patient, the patient agrees with the admission plan. Plan discussed with: Patient, Spouse My Orders Orders - SHAY TORRES RESIDENT Procedure Category Date Status Time Admit ADMIT 09/23/24 Transmitted 21:52 Code Status CODE 09/23/24 Transmitted 21:52 Vital Signs REBECCA 09/23/24 In Process 21:52 Review Orders With [facility] 09/23/24 In Process Adm. 21:52 Bedrest With Bathroom REBECCA 09/23/24 In Process Privileg 21:52 Consistent DIET 09/24/24 Transmitted Carb(Ccho)Diabetes Breakfast Notify Md Of Changes REBECCA 09/23/24 In Process From Base 21:52 Advance Directive REBECCA 09/23/24 In Process 21:52 Urinalysis LAB 09/23/24 Logged 21:52 Patient Condition ORDERS 09/23/24 Transmitted 21:52 Allergies REBECCA 09/23/24 In Process 21:52 Ondansetron Hcl PHA 09/23/24 In Process (Zofran) 22:00 Drug Screen LAB 09/23/24 Logged 21:52 Notify Of Changes REBECCA 09/23/24 In Process From Base 21:52 Sodium Chloride 0.9% PHA 09/23/24 In Process 22:00 Sodium Chloride 0.9% PHA 09/23/24 In Process 22:00 Covid19 Antigen Paula LAB 09/23/24 Logged Rapid Influenza A&B LAB 09/23/24 Logged 21:52 Baclofen Tablet PHA 09/23/24 In Process (Liorisal Tablet) 22:00 Amlodipine Tablet PHA 09/24/24 In Process (Norvasc Tablet) 08:00 Glucose Blood PHA 09/24/24 In Process (Accu-Chek Comfort 00:00 Insulin R (Human) PHA 09/24/24 In Process (Insulin R) 00:00 Dextrose 50% Syringe PHA 09/23/24 In Process 22:00 Complete Blood Count LAB 09/24/24 Verified 04:00 Basic Metabolic Panel LAB 09/24/24 Verified 04:00 Pantoprazole Tablet PHA 09/24/24 In Process (Protonix Tablet) 10:00 Hemoglobin A1c LAB 09/23/24 In Process 22:26 Date of Service: Sep 24, 2024 Billing Provider: MADIHA GUZMÁN MD Common Visit Codes: 11974-[id number] INP/OBS CARE (HIGH) Secondary Visit Codes: 98799-[id number] CARE PLAN 30 MINUTES SHAY TORRES RESIDENT Sep 23, 2024 22:37
[2024-09-24 07:06] LABS: Anion Gap 9 (5-15); Carbon Dioxide 26 mmol/L (20-31); Chloride 104 mmol/L (98-107); Potassium 3.8 mmol/L (3.5-5.1); Sodium 139 mmol/L (136-145)
[2024-09-24 07:08] LABS: Calcium 9.1 mg/dL (8.7-10.4)
[2024-09-24 07:12] LABS: BUN/Creatinine Ratio 6.8 (10.0-20.0)
[2024-09-24 07:19] LABS: Blood Urea Nitrogen 8 mg/dL (9-23); Glucose 222 mg/dL (74-106)
[2024-09-24 08:03] LABS: Hematocrit 44.4 % (41.0-53.0); Hemoglobin 15.6 g/dL (13.5-17.5); Mean Corpuscular Hemoglobin 28.6 pg (28.0-32.0); Mean Corpuscular Volume 81.3 fL (80.0-100.0); Nucleated Red Blood Cells % 0.4 %
[2024-09-24] MEDS: SODIUM CHLORIDE 0.9% 1,000 ML IV ONE ×2 (08:20)
[2024-09-24] MEDS: InsuLIN REG 1unit/0.01ml Soln (100units/ml) SC SCH (08:20)
[2024-09-24] MEDS: ATORVASTATIN 20 MG TAB PO ONE (08:20)
[2024-09-24] MEDS: ACCU-CHEK COMFORT CURVE STRIP VI SCH (08:21)
[2024-09-24 08:35] VITALS: PULSE 81; RESP 18; O2SAT 99
[2024-09-24] MEDS: cefTRIAXone 1GM/50ML D5W 50 ML IV SCH (08:54)
[2024-09-24 10:46] LABS: Urine Protein, UAD 1+ (Negative)
[2024-09-24 11:00] LABS: Amphetamine Screen, Urine Neg (NEGATIVE); Barbiturate Scree,Urine Neg (NEGATIVE); Benzodiazephine Screen, Urine Neg (NEGATIVE); Cannabinoid Screen, Urine Neg (NEGATIVE); Cocaine Screen, Urine Neg (NEGATIVE); Opiate Scree,Urine Neg (NEGATIVE); Phencyclidine Screen, Urine Neg (NEGATIVE)
[2024-09-24 11:20] LABS: COVID19 ANTIGEN SOFIA FIA NEGATIVE (NEGATIVE)
[2024-09-24] MEDS: PANTOPRAZOLE 40 MG TAB PO SCH (12:42)
[2024-09-24] MEDS: AZITHROMYCIN 500MG/ 250ML 250 ML IV SCH (12:44)
[2024-09-24 12:53] VITALS: BP 139/90; PULSE 76; RESP 20; TEMP 97.5; O2SAT 97
[2024-09-24 16:26] VITALS: BP 148/64; PULSE 68; RESP 17; TEMP 98.1; O2SAT 97
--- NOTE | 2024-09-24 16:44 | DVHDSRES ---
Discharge Summary Date of Admission Resident Creating Document: JAZMIN CHA RESIDENT Sep 23, 2024 at 21:52 Date of Discharge: Sep 24, 2024 Labs/Diagnostic Data: Laboratory Results Test 09/24/24 12:36 09/24/24 10:22 09/24/24 09:58 09/24/24 06:01 POC Glucose 254 mg/dl (70-106) Influenza Type A Antigen Negative (Negative) Influenza Type B Antigen Negative (Negative) SARS-CoV-2 Antigen (Rapid) Negative (NEGATIVE) Urine Color Light-yellow (Yellow) Urine Clarity Clear (Clear) Urine pH 5.5 (5.0-9.0) Urine Specific [place] 1.012 (1.001-1.035) Urine Protein 1+ (Negative) Urine Ketones Negative (Negative) Urine Blood Negative /uL (Negative) Urine Nitrite Negative (Negative) Urine Bilirubin Negative (Negative) Urine Urobilinogen Normal mg/dL (Negative) Urine Leukocyte Esterase Negative /uL (Negative) Urine RBC <1 /hpf (0 - 3) Urine Microscopic WBC < 1 /HPF (0-3) Urine Squamous Epithelial Cells None seen /hpf (<5) Urine Bacteria None seen /hpf (None Seen) Urine Glucose 2+ mg/dL (Normal) Urine Opiates Screen Neg (NEGATIVE) Urine Fentanyl Screen Neg (NEGATIVE) Urine Barbiturates Screen Neg (NEGATIVE) Urine Phencyclidine Screen Neg (NEGATIVE) Urine Amphetamines Screen Neg (NEGATIVE) Urine Benzodiazepines Screen Neg (NEGATIVE) Urine Cocaine Screen Neg (NEGATIVE) Urine Cannabinoids Screen Neg (NEGATIVE) White Blood Count 6.6 10^3/uL (4.4-10.8) Red Blood Count 5.46 10^6/uL (4.5-5.90) Hemoglobin 15.6 g/dL (13.5-17.5) Hematocrit 44.4 % (41.0-53.0) Mean Corpuscular Volume 81.3 fL (80.0-100.0) Mean Corpuscular Hemoglobin 28.6 pg (28.0-32.0) Mean Corpuscular Hemoglobin Concent 35.2 g/dL (32.0-36.0) Red Cell Distribution Width 13.6 % (11.8-14.3) Platelet Count 150 10^3/uL (140-450) Mean Platelet Volume 9.3 fL (6.9-10.8) Neutrophils (%) (Auto) 56.1 % (37.0-80.0) Lymphocytes (%) (Auto) 30.4 % (10.0-50.0) Monocytes (%) (Auto) 8.7 % (0.0-12.0) Eosinophils (%) (Auto) 4.4 % (0.0-7.0) Basophils (%) (Auto) 0.4 % (0.0-2.0) Neutrophils # (Auto) 3.7 10 ^3/uL (1.6-8.6) Lymphocytes # (Auto) 2.0 10 ^3/uL (0.4-5.4) Monocytes # (Auto) 0.6 10 ^3/uL (0-1.3) Eosinophils # (Auto) 0.3 10 ^3/uL (0-0.8) Basophils # (Auto) 0 10 ^3/uL (0-0.2) Nucleated Red Blood Cells 0.4 % D-Dimer, Quantitative < 0.19 mg/L FEU (0.0-0.49) Sodium Level 139 mmol/L (136-145) Potassium Level 3.8 mmol/L (3.5-5.1) Chloride Level 104 mmol/L (98-107) Carbon Dioxide Level 26 mmol/L (20-31) Anion Gap 9 (5-15) Blood Urea Nitrogen 8 mg/dL (9-23) Creatinine 1.17 mg/dL (0.700-1.30) Glomerular Filtration Rate Calc 78 mL/min (>90) BUN/Creatinine Ratio 6.8 (10.0-20.0) Serum Glucose 222 mg/dL (74-106) Calcium Level 9.1 mg/dL (8.7-10.4) Test 09/23/24 16:54 09/23/24 14:51 Troponin I High Sensitivity < 3 ng/L (</=54) Hemoglobin A1c 8.7 % A1C (<5.7) Other Laboratory Tests 09/24/24 06:01 Brief Hx & Hospital Course: Chago Moran is a 43-year-old male, with past medical history of DM type 2, hyperlipidemia, and hypertension. The patient presented to the ED with chief complaint of 2 weeks of generalized weakness and shortness of breath. Patient states, he has a cold and dry cough along with malaise for the past 2 weeks that has not resolved yet. Today, he experienced worsening symptoms of generalized weakness, dizziness and loss of balance. 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 The patient mentions having a fever and chills 2 days back. He also complained of increased thirst since the last 3 days.The patient denies dysuria, nausea, vomiting, or other symptoms. Initial evaluation in the ED showed Troponins 3, 3, Chest Xray and head CT are unremarkable. The HbA1c was 8.7 and blood glucose was 222. Cardiovascular: HTN, hyperipidemia Endocrine: Diabetes (Type 2) Past Surgical History: drainage of renal abcess 2 years back Family History: None Smoke: past history of smoking which patient quit 1 year back ALCOHOL: none Drugs: None Lives: with Family Constitutional: Yes: Weakness, Malaise; No: Fever, Chills, Sweats, Eyes: No: Pain, Vision change, Conjunctivae inflammation, Eyelid inflammation, Other, Redness ENT: No: Ear pain, Ear discharge, Nose pain, Nose discharge, Nose congestion, Mouth pain, Mouth swelling, Throat pain, Throat swelling, Other Respiratory: : mild dry Cough, no Shortness of breath, SOB with excertion, Wheezing, Hemoptysis, Pleuritic Pain, Sputum, Wheezing, Other Cardiovascular: No: Chest Pain, Palpitations, Orthopnea, Paroxysmal Noc. Dyspnea, Edema, Lt Headedness, Other Gastrointestinal: No: Nausea, Vomiting, Abdominal Pain, Diarrhea, Constipation, Melena, Hematochezia, Other Genitourinary: No Dysuria, No Frequency, No Incontinence, No Hematuria, No Retention, No Other Musculoskeletal: No: other, neck pain, shoulder pain, arm pain, back pain, hand pain, leg pain, foot pain Skin: No: Rash, Lesions, Jaundice, Bruising, Other Neurological: No: Weakness, Numbness, Incoordination, Change in speech, Confusion, Seizures, Other Allergies: unknown General Appearance: Alert, Oriented X3, Cooperative HEENT: Atraumatic, Mucous membr. moist/pink Respiratory: Clear to auscultation, Normal air movement Cardiovascular: Regular rate, Normal S1, Normal S2, No murmurs Abdominal: Normal bowel sounds, Soft, No tenderness, No hepatospenomegaly, No masses Extremities: No clubbing, No cyanosis, No edema, Normal pulses, No tenderness/swelling Skin: No rashes, No breakdown, No significant lesion Neuro: Normal gait, Normal speech, Strength at 5/5 X4 ext, Normal tone, Sensation intact Psych/Mental Status: Mental status NL, Mood NL Condition at Discharge: Stable Final Diagnosis/Problems List viral syndrome acute bronchitis uncontroled diabetes copd exacerbation ?, PFTs unavailable essential hypertension hyperlipidemia Discharge Disposition: Home Discharge Instruct/Medications Diet: Consistent carbohydrate Activity: No Restrictions, As Tolerated Follow Up/Referral: follow up with PCP in 2 weeks Scheduled Azithromycin (Zithromax Z-Ramses), 250 MG PO DAILY Discharge Statement: "Patient was advised to return to the ER or call 911 if any headaches, dizziness, shortness of breath, chest pain, abdominal pain, bleeding, fevers, or worsening of medical condition. Patient was counseled about treatment plan, medications, possible side effects, patientverbalized understanding. All questions were answered to the best of my ability. This discharge took greater then 30 minutes in planning, reviewing documentation, counseling the patient, and discussing with other team members." ASSESSMENT ASSESSMENT Assessment Date of Service: Sep 24, 2024 Billing Provider: ROD DOSHI MD Common Visit Codes: 79721-LJC/OBS DISCH DAY >30min JAZMIN CHA RESIDENT Sep 24, 2024 16:44 ROD DOSHI MD Sep 28, 2024 21:02
[2024-09-24] MEDS ORDERED: AZITTAB PO (16:51)
[2024-09-24 17:00] VITALS: BP 148/84; PULSE 68; RESP 17; TEMP 98.1; O2SAT 97
--- NOTE | 2024-09-26 12:59 | ECG ---
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
== END 2024-09-24 17:46 | disposition home or self-care (01) | DRG 145 ==
LOC: ER 12:47 → OVERFLOW 21:52
PROVIDERS: ADMIT Internal Medicine Geriatric Medicine; ATTEND Emergency Medicine
DX: J20.9 Acute bronchitis, unspecified (principal); J44.1 Chronic obstructive pulmonary disease with (acute) exacerbation; B34.9 Viral infection, unspecified; I10 Essential (primary) hypertension; E66.9 Obesity, unspecified; Z68.31 Body mass index [BMI] 31.0-31.9, adult; E11.65 Type 2 diabetes mellitus with hyperglycemia; E78.5 Hyperlipidemia, unspecified; F17.210 Nicotine dependence, cigarettes, uncomplicated; Z20.822 Contact with and (suspected) exposure to COVID-19; E86.0 Dehydration; T67.5XXA Heat exhaustion, unspecified, initial encounter; Z90.49 Acquired absence of other specified parts of digestive tract; Z83.3 Family history of diabetes mellitus; X58.XXXA Exposure to other specified factors, initial encounter; Y93.89 Activity, other specified; Y92.89 Other specified places as the place of occurrence of the external cause; Y99.8 Other external cause status
CPT/HCPCS: 36415; 70450; 71045; 80048; 80307; 81001; 82962; 83036; 84484; 85025; 85379; 87426; 87804; 93005; 99291; G0378; J1815

== ENCOUNTER 2024-12-30 03:12 | Emergency (ER) | payer MEDICAID ==
[~2024-12-30] VITALS: Ht 165.1 cm; Wt 86.8 kg
[~2024-12-30 03:12] MED LIST changes: -ACET500T58 PO; -ALBU108A5 IN; -MONT10TA23 PO
--- NOTE | 2024-12-30 03:45 | ED.PDOC ---
History of Present Illness HPI Comments 44-year-old male who came to ER for high blood pressure. Patient has a history of hypertension, diabetes, dyslipidemia, with a has poor compliance to his losartan and amlodipine. He has been having dizziness, left-sided chest discomfort, and anxiety. Noted SBP>200 at home. For arrival blood pressure was 195/107 mm Hg REVIEW OF SYSTEMS: General: No fever, no chills, or fatigue HEENT: No sore throat, no earache, no congestion, no neck pain. Cardiac: (+) chest pain. No palpitations. Lungs: No shortness of breath, no cough. GI: No nausea, no vomiting, no diarrhea, no constipation, no abdominal pain : No dysuria, frequency, or urgency. No hematuria. Musculoskeletal: No joint pain , no joint swelling, no extremity edema. Skin: No rash, no itching. Neuro: No headache, (+) dizziness, no weakness EXAM: General: Awake, alert and oriented. No acute distress. Skin: Skin in warm, dry and intact. Appropriate color for ethnicity. HEENT: The head is normocephalic and atraumatic. Conjunctivae are clear without exudates or hemorrhage. Sclera is non-icteric. EOM are intact. No signs of nystagmus. Eyelids are normal in appearance without swelling or lesions. Oral mucosa is pink and moist Neck: The neck is supple with normal range of motion. No JVD. Cardiac: Heart rate and rhythm are normal. No murmurs, gallops, or rubs are auscultated. Respiratory: No signs of respiratory distress. Lung sounds are clear in all lobes bilaterally without rales, rhonchi, or wheezes. Abdominal: Abdomen is soft, non-tender without distention. Bowel sounds are present and normoactive in all four quadrants. Extremities: Upper and lower extremities are atraumatic in appearance without deformity or edema. Neurological: The patient is awake, alert and oriented to person, place, and time with normal speech. Speech is clear. There is no facial asymmetry. Psychiatric: Appropriate mood and affect. Good judgement and insight Chief Complaint: High Blood Pressure Time Seen by MD: 03:45 Primary Care Provider: VINAY Reviewed Notes: Nurses Notes Allergies: Coded Allergies: NO KNOWN ALLERGIES (Unverified , 07/03/13) Home Meds Active Scripts Azithromycin (Zithromax Z-Ramses) 250 Mg Tab, 250 MG PO DAILY for 5 Days, #5 TAB Prov:REZA GARY RESIDENT 09/24/24 Information Source: Patient Mode of Arrival: Ambulatory Past Medical History PAST MEDICAL HISTORY: DM, High Lipids, HTN Surgical History: Cholecystectomy Family History Family History: Family hx of DM Social History Smoker: Cigarettes Alcohol: Occasionally Drugs: Denies Drug Use Lives In: Home Was a procedure done? Was a procedure done?: No EKG EKG : Pulse Rate (adult): 84 Cardiac Rhythm: NSR Differential Dx Considerations may include: Hypertensive urgency, medication noncompliance X-Ray, Labs, Meds, VS Vital Signs Date Time Temp Pulse Resp B/P (MAP) Pulse Ox O2 Delivery O2 Flow Rate FiO2 12/30/24 05:46 119/75 12/30/24 05:39 84 12/30/24 05:36 84 12/30/24 04:46 163/88 12/30/24 04:46 89 19 96 Room Air 12/30/24 04:46 97.8 89 19 163/88 (113) 96 97.8 12/30/24 03:14 97.8 85 16 195/107 99 97.8 Lab Test 12/30/24 04:52 12/30/24 03:56 Range/Units Troponin I High Sensitivity 6 6 </=54 ng/L White Blood Count 7.2 4.4-10.8 10^3/uL Red Blood Count 5.64 4.5-5.90 10^6/uL Hemoglobin 17.0 13.5-17.5 g/dL Hematocrit 47.7 41.0-53.0 % Mean Corpuscular Volume 84.5 80.0-100.0 fL Mean Corpuscular Hemoglobin 30.2 28.0-32.0 pg Mean Corpuscular Hemoglobin Concent 35.7 32.0-36.0 g/dL Red Cell Distribution Width 15.4 H 11.8-14.3 % Platelet Count 138 L 140-450 10^3/uL Mean Platelet Volume 8.7 6.9-10.8 fL Neutrophils (%) (Auto) 73.5 37.0-80.0 % Lymphocytes (%) (Auto) 16.2 10.0-50.0 % Monocytes (%) (Auto) 8.5 0.0-12.0 % Eosinophils (%) (Auto) 1.3 0.0-7.0 % Basophils (%) (Auto) 0.5 0.0-2.0 % Neutrophils # (Auto) 5.3 1.6-8.6 10 ^3/uL Lymphocytes # (Auto) 1.2 0.4-5.4 10 ^3/uL Monocytes # (Auto) 0.6 0-1.3 10 ^3/uL Eosinophils # (Auto) 0.1 0-0.8 10 ^3/uL Basophils # (Auto) 0 0-0.2 10 ^3/uL Nucleated Red Blood Cells 0.3 % Sodium Level 133 L 136-145 mmol/L Potassium Level 4.2 3.5-5.1 mmol/L Chloride Level 100 98-107 mmol/L Carbon Dioxide Level 24 20-31 mmol/L Anion Gap 9 5-15 Blood Urea Nitrogen 11 9-23 mg/dL Creatinine 1.09 0.700-1.30 mg/dL Glomerular Filtration Rate Calc 85 >90 mL/min BUN/Creatinine Ratio 10.1 10.0-20.0 Serum Glucose 237 H 74-106 mg/dL Calcium Level 8.9 8.7-10.4 mg/dL B-Type Natriuretic Peptide 5.59 0-100 pg/mL Time of 1ST Reevaluation: 03:37 Reevaluation 1ST: Unchanged Patient Education/Counseling: Need For Follow Up Family Education/Counseling: No Family Present SEPSIS Sepsis Screen Date sepsis recognized/suspect: Dec 30, 2024 Time Sepsis recognized/suspect: 316 Recent Procedure: No On Antibiotic Therapy: No Respiratory Rate >20: No Heart Rate >90: No Temp<36 C (96.8 F) or >38.3 C: No SBP <90 or MAP <65 mmHG: No New Acute Mental Status Change: No Is the patient on CPAP, BIPAP,: No Physician Orders Electrocardigram (12/30/24 03:47) Chest Xray 1 View (12/30/24 03:47) 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 ) Electrocardigram (12/30/24 04:47) Vital Signs Date Time Temp Pulse Resp B/P (MAP) Pulse Ox O2 Delivery O2 Flow Rate FiO2 12/30/24 05:46 119/75 12/30/24 05:39 84 12/30/24 05:36 84 12/30/24 04:46 163/88 12/30/24 04:46 89 19 96 Room Air 12/30/24 04:46 97.8 89 19 163/88 (113) 96 97.8 12/30/24 03:14 97.8 85 16 195/107 99 97.8 Laboratory Tests Test 12/30/24 03:56 White Blood Count 7.2 10^3/uL (4.4-10.8) Departure 1 Departure Time of Disposition: 05:20 Impression: Primary Impression: HTN (hypertension) Additional Impressions: Chest pain Dizzy Disposition: HOME / SELF CARE / HOMELESS Condition: Stable Additional Instructions: INSTRUCCIONES DE YUKI DE Urgencias Instrucciones: Lyla atentamente todas las instrucciones proporcionadas en tasneem paquete. Asegrese de jhon todos amy medicamentos exactamente nacho se los recetaron. No omita ninguna dosis a menos que hess mdico se lo indique. Aunque le hayan dado el yuki del Departamento de Emergencias, esto no significa que tenga un "certificado de buena avi". Hoy no se rincon realizado ningn diagnstico definitivo para amy sntomas. Es posible que ests en proceso de desarrollar nadiya enfermedad grave. Es por eso que debe regresar al servicio de urgencias sin falta si presenta algn sntoma nuevo o que empeora (especialmente si amy sntomas incluyen dolor en el pecho, dificultad para respirar, dolor abdominal, fiebre, dolor de sharyn, confusin, dificultad para lanny o caminar). Tambin es muy importante que consulte a un mdico de atencin primaria dentro de los prximos 3 a 5 phillips para realizar un seguimiento. Si no puede conseguir nadiya meme, regrese al servicio de urgencias para nadiya nueva evaluacin. Dolor en el pecho: Instrucciones de cuidado Descripcin general Hay muchas cosas que pueden causar dolor en el pecho. Algunas no son graves y mejoran por s solas en unos phillips. Sin embargo, algunos tipos de dolor en el pecho requieren ms pruebas y tratamiento. Es posible que hess mdico le haya recomendado nadiya visita de seguimiento en los prximos phillips. Si no mejora, es posible que necesite ms pruebas o tratamiento. Aunque hess mdico le haya dado de yuki, debe estar atento a cualquier problema. El mdico le realiz nadiya revisin exhaustiva, agnes a veces pueden surgir problemas ms adelante. Si presenta sntomas nuevos o si estos no mejoran, busque atencin mdica de inmediato. Si tiene un dolor o presin en el pecho peor o diferente que dura ms de 5 minutos o si se desmay (perdi el conocimiento), llame al 911 o busque otra ayuda de emergencia de inmediato. Nadiya visita mdica es solo un paso en hess tratamiento. Incluso si se siente mejor, debe seguir las recomendaciones de hess mdico, nacho asistir a todas las citas de seguimiento sugeridas y jhon los medicamentos exactamente nacho se le indique. [place] le ayudar a recuperarse y a prevenir problemas futuros. Hvac Service Tech puedes cuidarte en casa? Descansa hasta que te sientas mejor. [place] hess medicamento exactamente nacho se lo recetaron. Llame a hess mdico si keith que tiene algn problema con hess medicamento. No conduzca despus de jhon un analgsico recetado. Cundo debes pedir ayuda? Llame al 911 si: Te desmayaste (perdiste el conocimiento). Tienes dificultad grave para respirar. Tiene sntomas de un ataque cardaco. Estos pueden incluir: Dolor o presin en el pecho, o nadiya sensacin extraa en el pecho. Transpiracin. Dificultad para respirar. Nuseas o vmitos. Dolor, presin o nadiya sensacin extraa en la espalda, el anthony, la mandbula o la parte superior del abdomen o en mike o ambos hombros o brazos. Mareo o debilidad repentina. Un ritmo cardaco rpido o irregular. Despus de llamar al 911 , el operador podra indicarle que mastique nadiya aspirina para adultos o de 2 a 4 aspirinas de dosis baja. Espere la ambulancia. No intente conducir. Llame a hess mdico ahora o busque atencin mdica inmediata si: Tienes alguna dificultad para respirar. Tiene un dolor en el pecho nuevo o diferente. Se siente mareado o aturdido o nacho si se pudiera desmayar. Preste atencin de cerca a los cambios en hess avi y asegrese de comunicarse con hess mdico si no mejora nacho se esperaba. Crditos para el dolor de pecho: Instrucciones de cuidado Actualizado al: 2023 Autor: Personal de [employer] Junta de revisin clnica Toda la educacin de [employer]abil[employer] es revisada por un equipo que incluye mdicos, enfermeras, profesionales avanzados, dietistas registrados y otros profesionales de la avi. Comments Patient's blood pressure improved with treatment in the emergency department. Labs and imaging results reviewed, not urgently actionable. Patient is felt stable for discharge home Critical Care Note Critical Care Time?: No Stability Stability form required: No Heart Score Heart Score: Heart Score Response (Comments) Value History N/A 0 EKG N/A 0 Age N/A 0 Risk Factors N/A 0 Troponin N/A 0 Total 0 I personally scribed for ZEESHAN MÁRQUEZ MD ([email or web address]) on 12/30/24 at 03:45. Electronically submitted by Anish Ward ([email or web address]). I personally scribed for ZEESHAN MÁRQUEZ MD ([email or web address]) on 12/30/24 at 05:39. Electronically submitted by Anish Ward ([email or web address]). ZEESHAN MÁRQUEZ MD Dec 30, 2024 03:45
--- NOTE | 2024-12-30 04:15 | DVH ---
CHEST RADIOGRAPH Indication: cp Technique: Single frontal view of the chest was obtained Comparison: XY CHEST PORTABLE on DOS: 09/23/24 FINDINGS: Lines and Tubes: None Lungs: No focal consolidation. Pleura: No effusion. No pneumothorax. Cardiomediastinal contours: Unremarkable Bones: No acute osseous abnormality. IMPRESSION: 1. No acute cardiopulmonary disease.
[2024-12-30 04:24] LABS: Hematocrit 47.7 % (41.0-53.0); Hemoglobin 17.0 g/dL (13.5-17.5); Mean Corpuscular Hemoglobin 30.2 pg (28.0-32.0); Mean Corpuscular Volume 84.5 fL (80.0-100.0); Nucleated Red Blood Cells % 0.3 %
[2024-12-30 04:32] LABS: Chloride 100 mmol/L (98-107); Potassium 4.2 mmol/L (3.5-5.1)
[2024-12-30 04:33] LABS: Anion Gap 9 (5-15); Calcium 8.9 mg/dL (8.7-10.4); Carbon Dioxide 24 mmol/L (20-31)
[2024-12-30 04:34] LABS: Sodium 133 mmol/L (136-145)
[2024-12-30 04:38] LABS: BUN/Creatinine Ratio 10.1 (10.0-20.0); Blood Urea Nitrogen 11 mg/dL (9-23)
[2024-12-30 04:46] VITALS: BP 163/88; RESP 19; TEMP 97.8; O2SAT 96
[2024-12-30 04:59] LABS: Glucose 237 mg/dL (74-106)
--- NOTE | 2024-12-30 05:37 | ECG ---
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
[2024-12-30 05:39] VITALS: PULSE 84
== END 2024-12-30 05:49 | disposition home or self-care (01) ==
LOC: ER 03:12
DX: I10 Essential (primary) hypertension (principal); R07.89 Other chest pain; R42 Dizziness and giddiness; E78.5 Hyperlipidemia, unspecified; E11.9 Type 2 diabetes mellitus without complications; F17.210 Nicotine dependence, cigarettes, uncomplicated; F41.9 Anxiety disorder, unspecified; Z79.899 Other long term (current) drug therapy; Z90.49 Acquired absence of other specified parts of digestive tract
CPT/HCPCS: 36415; 71045; 80048; 83880; 84484; 85025; 93005